=== PATIENT | male | born 1990 | race Caucasian/White ===

== ENCOUNTER 2016-11-29 00:05 | Emergency (ER) | payer SELFPAY ==
--- NOTE | 2016-11-29 00:29 | C.PDOC ---
History Of Present Illness The patient presents to the ED complaining of chest discomfort, which he reports occurs before and after he eats. Patient additionally states he eats a lot of spicy foods. He denies any associated fever, chills, nausea, vomiting or shortness of breath. He offers no additional medical complaints. Time Seen by Provider: 11/29/16 00:28 Chief Complaint (Nursing): Chest Pain History Per: Patient History/Exam Limitations: no limitations Onset/Duration Of Symptoms: Days Current Symptoms Are (Timing): Still Present Context: Food Severity: Mild Pain Scale Rating Of: 3 Quality: "Pain" Associated Symptoms: denies: Nausea Modifying Factors: None Exacerbating Factors: None Alleviating Factors: None Recent travel outside of the [place]: No Additional History Per: Patient Past Medical History Reviewed: Historical Data, Nursing Documentation, Vital Signs Vital Signs: Last Vital Signs Temp 99.1 F 11/29/16 00:12 Pulse 92 H 11/29/16 01:42 Resp 16 11/29/16 01:42 BP 105/70 11/29/16 01:42 Pulse Ox 98 11/29/16 02:10 - Medical History PMH: No Chronic Diseases Surgical History: No Surg Hx Family History: States: No Known Family Hx - Social History Hx Alcohol Use: No Hx Substance Use: No - Immunization History Hx Tetanus Toxoid Vaccination: No Hx Influenza Vaccination: No Hx Pneumococcal Vaccination: No Review Of Systems Constitutional: Negative for: Fever, Chills Cardiovascular: Positive for: Chest Pain Respiratory: Negative for: Shortness of Breath Gastrointestinal: Negative for: Nausea, Vomiting Physical Exam - Physical Exam Appears: Non-toxic, No Acute Distress Skin: Warm, Dry Head: Normacephalic Eye(s): bilateral: Normal Inspection Oral Mucosa: Moist Neck: Supple Cardiovascular: Rhythm Regular Respiratory: No Decreased Breath Sounds, No Accessory Muscle Use Gastrointestinal/Abdominal: Bowel Sounds, Soft, No Tenderness Extremity: No Deformity, No Swelling Neurological/Psych: Oriented x3, Normal Speech, Normal Cognition ED Course And Treatment - Laboratory Results Result Diagrams: 11/29/16 00:55 11/29/16 00:55 ECG: Interpreted By Me, Viewed By Me ECG Rhythm: Sinus Rhythm (88), Nonspecific Changes O2 Sat by Pulse Oximetry: 98 (RA) Pulse Ox Interpretation: Normal - Radiology CXR: Interpreted by Me, Viewed By Me CXR Interpretation: No: Infiltrates, Fracture, Pnemothorax Progress Note: EKG ordered. Labs, aspirin and protonix ordered. Reevaluation Time: 02:06 Reassessment Condition: Improved Medical Decision Making Medical Decision Making: I considered the following diagnoses: acute coronary syndrome, pulmonary embolism, lower respiratory infection, aortic dissection/aneurysm, pneumothorax , pericarditis, esophagitis/GERD, zoster and esophageal rupture but found them to be unlikely based on the history, physical exam, and diagnostics. My conclusions regarding the unlikely diagnoses were based on: the absence of significant EKG abnormalities, the lack of suggestive x-ray findings, the absence of significant abnormalities on cardiac monitoring, the absence of asymmetric pulses. Pt feels fine and wants to go home Upon provider reevaluation patient is feeling better, is medically stable, and requires no further treatment in the ED at this time. Patient will be discharged home with Rx for protonix. Counseling was provided and all questions were answered regarding diagnosis and need for follow up with the referred clinic. There is agreement to discharge plan. Return if symptoms persist or worsen. Disposition Counseled Patient/Family Regarding: Studies Performed, Diagnosis, Need For Followup - Disposition Referrals: [facility] [Outside] [facility] [Outside] Disposition: HOME/ ROUTINE Disposition Time: 00:29 Condition: FAIR Prescriptions: Pantoprazole Sodium [Protonix] 20 mg PO DAILY #15 ect Instructions: Gastroesophageal Reflux Disease (ED) Forms: [facility] (Lao) - Clinical Impression Clinical Impression: GERD (gastroesophageal reflux disease) - Scribe Statement The provider has reviewed the documentation as recorded by the Chen Cobos Provider Attestation: All medical record entries made by the Chen were at my direction and personally dictated by me. I have reviewed the chart and agree that the record accurately reflects my personal performance of the history, physical exam, medical decision making, and the department course for this patient. I have also personally directed, reviewed, and agree with the discharge instructions and disposition.
[2016-11-29] MEDS ORDERED: Aspirin 325 mg EC Tablets PO STA (00:39)
[2016-11-29] MEDS ORDERED: Aspirin 325 mg EC Tablets PO ONE (00:45)
[2016-11-29 00:59] LABS: BASO # 0.1 K/uL (0.0-0.2); EOS # 0.3 K/uL (0.0-0.7); EOS % 3.4 % (0.0-4.0); HEMATOCRIT 37.9 % (35.0-51.0); LYMPH # 1.5 K/uL (1.0-4.3); LYMPH % 17.1 % (20.0-40.0); MEAN CELL VOLUME 74.9 fL (80.0-94.0); MEAN CORPUSCULAR HEMOGLOBIN 24.6 pg (27.0-31.0); MEAN CORPUSCULAR HGB CONC 32.8 g/dL (33.0-37.0); MEAN PLATELET VOLUME 8.4 fL (7.2-11.7); MONO % 11.5 % (0.0-10.0); RED CELL DISTRIBUTION WIDTH 15.1 % (11.5-14.5); WHITE BLOOD COUNT 8.6 K/uL (4.8-10.8)
[2016-11-29 01:16] LABS: CHLORIDE 105 mmol/L (98-107)
[2016-11-29 01:18] LABS: SODIUM 143 mmol/L (132-148)
[2016-11-29 01:20] LABS: ALB/GLOB RATIO 1.4 (1.0-2.1); ALKALINE PHOSPHATASE 49 U/L (38-126); ALT/SGPT 29 U/L (21-72); AST/SGOT 14 U/L (17-59); BILIRUBIN,TOTAL 0.5 mg/dL (0.2-1.3); BLOOD UREA NITROGEN 10 mg/dL (9-20); CALCIUM 8.8 mg/dl (8.6-10.4); CARBON DIOXIDE 25 mmol/L (22-30); GFR AFRICAN-AMERICAN > 60; GLUCOSE,RANDOM 101 mg/dL (75-110); TOTAL PROTEIN 6.9 g/dL (6.3-8.3)
[2016-11-29 01:42] VITALS: BP 105/70; PULSE 92; RESP 16
[2016-11-29 02:10] VITALS: O2SAT 98
[2016-11-29 02:39] VITALS: TEMP 98.3
--- NOTE | 2016-11-29 09:50 | RAD ---
PROCEDURE: CHEST RADIOGRAPH, 1 VIEW HISTORY: cp COMPARISON: None available. FINDINGS: LUNGS: No acute infiltrate is appreciated bilaterally. PLEURA: No pneumothorax or pleural fluid seen. CARDIOVASCULAR: Normal. OSSEOUS STRUCTURES: No significant abnormalities. VISUALIZED UPPER ABDOMEN: Normal. OTHER FINDINGS: None. IMPRESSION: No acute cardiopulmonary disease appreciated.
== END 2016-11-29 02:39 | disposition home or self-care (01) ==
LOC: C.ER 00:05 → SUPCPDRO 00:05 → C.ER 02:39
DX: K21.9 Gastro-esophageal reflux disease without esophagitis (principal)
CPT/HCPCS: 71010; 80053; 84484; 85025; 96374; 99285; C9113

== ENCOUNTER 2017-03-24 23:35 | Emergency (ER) | payer SELFPAY ==
[2017-03-25 00:28] VITALS: BP 107/71; PULSE 107; RESP 20; TEMP 98.9; O2SAT 100
--- NOTE | 2017-03-25 00:58 | C.PDOC ---
History Of Present Illness Patient is a 26 y/o male who presents to the ED with a complaint of tingling sensation and pain to fingers and toes usually after walking outdoors. Patient notes today noticing part of finger "turned dark" which concerned him. No numbness, weakness, trauma other physical complaints at this time. Time Seen by Provider: 03/25/17 00:35 Chief Complaint (Nursing): Upper Extremity Problem/Injury History Per: Patient History/Exam Limitations: no limitations Onset/Duration Of Symptoms: Hrs Current Symptoms Are (Timing): Still Present Quality: Other (tingling sensation) Recent travel outside of the [place]: No Past Medical History Reviewed: Historical Data, Nursing Documentation, Vital Signs Vital Signs: Last Vital Signs Temp 98.9 F 03/25/17 00:22 Pulse 107 H 03/25/17 00:22 Resp 20 03/25/17 00:22 BP 107/71 03/25/17 00:22 Pulse Ox 100 03/25/17 04:38 - Medical History PMH: No Chronic Diseases Surgical History: No Surg Hx Family History: States: No Known Family Hx - Social History Hx Alcohol Use: No Hx Substance Use: No - Immunization History Hx Tetanus Toxoid Vaccination: No Hx Influenza Vaccination: No Hx Pneumococcal Vaccination: No Review Of Systems Constitutional: Negative for: Fever Skin: Negative for: Rash Neurological: Positive for: Numbness (tingling sensation to fingers and toes), Other ("dark areas to fingers") Physical Exam - Physical Exam Appears: Well, Non-toxic, No Acute Distress Skin: Normal Color, Warm, Dry Eye(s): bilateral: Normal Inspection, PERRL Extremity: Normal ROM, No Tenderness, Capillary Refill (<2sec in fingers and toes), No Swelling, No Other (erythema, no hyperpipmentation,dark discoloration to hands or feet) Extremity: Bilateral: Atraumatic, Normal Color And Temperature Pulses: Left Radial: Normal, Right Radial: Normal, Left Dorsalis Pedis: Normal, Right Dorsalis Pedis: Normal Neurological/Psych: Oriented x3, Normal Speech, Normal Cognition, Normal Motor, Normal Sensation (in fingers and toes) Gait: Steady ED Course And Treatment O2 Sat by Pulse Oximetry: 100 Pulse Ox Interpretation: Normal Progress Note: Pt with unremarkable exam, advised PMD F/U. Return precautions discussed and understood by pt Disposition Counseled Patient/Family Regarding: Diagnosis, Need For Followup, Rx Given - Disposition Disposition: HOME/ ROUTINE Disposition Time: 00:56 Condition: STABLE Additional Instructions: Please follow up with PMD Take advil or tylenol for pain Return to ER if worse Instructions: Peripheral Neuropathy (ED) Forms: [employer] (Kazakh) - Clinical Impression Clinical Impression: Neuropathic pain - Scribe Statement The provider has reviewed the documentation as recorded by the Scribe Lorene Coley All medical record entries made by the Juanibshelley were at my direction and personally dictated by me. I have reviewed the chart and agree that the record accurately reflects my personal performance of the history, physical exam, medical decision making, and the department course for this patient. I have also personally directed, reviewed, and agree with the discharge instructions and disposition.
== END 2017-03-25 01:00 | disposition home or self-care (01) ==
LOC: C.ER 23:35
DX: G62.9 Polyneuropathy, unspecified (principal)